=== PATIENT | female | born 1945 | race Caucasian/White ===

== ENCOUNTER 2018-11-29 07:29 | Day surgery (SDC) | payer OTHER, BC ==
[2018-11-29 07:56] VITALS: BMI 22.4
[2018-11-29] MEDS ORDERED: LIDOCAINE HCL/PF 2% SDV 5ML VIAL ONE (08:16)
[2018-11-29] MEDS ORDERED: PROPOFOL 20 ML ONE ×3 (08:17)
[2018-11-29 09:20] VITALS: TEMP 98.1
[2018-11-29 09:31] VITALS: BP 116/54; PULSE 69
== END 2018-11-29 09:30 | disposition home or self-care (01) ==
LOC: FASU-ENDO 07:29
PROVIDERS: ATTEND Internal Medicine Gastroenterology
PROC: 0D5H8ZZ Destruction of Cecum, Via Natural or Artificial Opening Endoscopic (ICD-10-PCS; principal; 2018-11-29 08:00)
DX: Z86.010 Personal history of colon polyps (principal); K55.20 Angiodysplasia of colon without hemorrhage